=== PATIENT | female | born 1975 | race Caucasian/White ===

== ENCOUNTER → 2019-02-03 | Outpatient (CLI) | payer OTHER | LOC: BMCIMAGING 11:39 | PROVIDERS: ATTEND Family Medicine | DX: M51.36 Other intervertebral disc degeneration, lumbar region (principal) ==

== ENCOUNTER → 2019-04-07 | Outpatient (CLI) | payer OTHER | LOC: EMCIMAGING 16:03 | PROVIDERS: ATTEND Family Medicine | DX: M51.37 Other intervertebral disc degeneration, lumbosacral region (principal) | CPT/HCPCS: 72148-PN ==